=== PATIENT | male | born 1955 | race Caucasian/White ===

== ENCOUNTER 2017-06-21 08:12 | Inpatient (IN) | payer OTHER ==
[~2017-06-21] VITALS: Ht 180.3 cm; Wt 147.6 kg
[~2017-06-21 08:12] MED LIST: ACETAMINOPHEN/H1 TA6 PO; ANTIVERT/2525 MG PO; ASPIR 8181 MG PO; ASPIRIN81 MG PO; CLINDAMYCIN HC300 MG PO; LAC PO; LASIX20 MG PO; LEVOFLOXACIN500 M1 PO; LISINOPRIL20 MG PO; METFORMIN HYD1000 M1 PO; NORCO1 TA2 PO; PRO30 PO; SIMVASTATIN20 M1 PO; SYNTHROID0.1 MG PO; ZES20 PO; ZESTRIL5 MG PO; ZOCOR40 MG PO
[2017-06-21 09:23] LABS: UA SPECIFIC GRAVITY >=1.030 (1.005-1.035); microscopic required? YES; urine erythrocyte 2+ (NEGATIVE)
[2017-06-21 09:26] LABS: CALCIUM 8.7 mg/dL (8.5-10.1); MAGNESIUM 2.3 mg/dL (1.8-2.4)
[2017-06-21 09:28] LABS: AMPHETAMINE QUAL UR NONE DETECTED (NEG <=1000)
[2017-06-21 09:29] LABS: BASOPHIL % 0.3 % (0-2); PLATELET COUNT 177 x10^3mcL (130-400); RED CELL DISTRIBUTION WIDTH 13.8 % (11.5-14.5)
[2017-06-21] MEDS ORDERED: ZESTRIL20 MG PO (10:08)
[2017-06-21] MEDS ORDERED: METFORMIN HYD1000 M2 PO (10:09)
[2017-06-21] MEDS ORDERED: AMARYL2 MG PO (10:09)
[2017-06-21] MEDS ORDERED: HYDROCHLOROTHIA25 MG PO (10:09)
[2017-06-21 11:01] LABS: BILIRUBIN TOTAL 0.48 mg/dL (0.20-1.00); CALCIUM 8.8 mg/dL (8.5-10.1); CARBON DIOXIDE 28.7 mmol/L (21-32); CREATININE SERUM 1.8 mg/dL (0.7-1.3); POTASSIUM SERUM 5.5 mmol/L (3.5-5.1); T4(THYROXINE) 5.9 ug/dL (4.7-13.3); TOTAL PROTEIN, SERUM 7.6 g/dL (6.4-8.2)
[2017-06-21 11:02] LABS: ALBUMIN 3.3 g/dL (3.4-5.0)
[2017-06-21 13:03] LABS: PHOSPHOROUS 3.6 mg/dL (2.5-4.9)
[2017-06-21 13:11] LABS: FREE T4 0.95 ng/dL (0.76-1.46); FREE THYROXINE INDEX 2.5 ug/dL (1.4-4.5)
[2017-06-21 13:17] LABS: T3 TOTAL 0.75 ng/mL
[2017-06-21 14:05] VITALS: BP 197/112
[2017-06-21 14:20] VITALS: Ht 180.3 cm; Wt 147.6 kg
[2017-06-21 15:15] VITALS: BP 179/89
[2017-06-21 16:30] VITALS: BP 134/68
[2017-06-21 18:50] VITALS: BP 147/73
[2017-06-21 19:48] LABS: CALCIUM 8.9 mg/dL (8.5-10.1); CARBON DIOXIDE 29.6 mmol/L (21-32); CREATININE SERUM 2.1 mg/dL (0.7-1.3); POTASSIUM SERUM 4.6 mmol/L (3.5-5.1)
[2017-06-21 21:46] VITALS: BP 196/95
[2017-06-22] VITALS (9 sets, daily range): BP systolic 137–193; BP diastolic 54–94
[2017-06-22 06:33] LABS: BASOPHIL % 0.1 % (0-2); PLATELET COUNT 229 x10^3mcL (130-400); RED CELL DISTRIBUTION WIDTH 14.4 % (11.5-14.5)
[2017-06-22 06:51] LABS: CALCIUM 8.8 mg/dL (8.5-10.1); CARBON DIOXIDE 24.3 mmol/L (21-32); MAGNESIUM 2.3 mg/dL (1.8-2.4); PHOSPHOROUS 4.5 mg/dL (2.5-4.9); POTASSIUM SERUM 4.3 mmol/L (3.5-5.1)
[2017-06-23 06:46] LABS: BASOPHIL % 0.5 % (0-2); PLATELET COUNT 202 x10^3mcL (130-400)
[2017-06-23 06:50] VITALS: BP 158/70
[2017-06-23 06:53] LABS: RED CELL DISTRIBUTION WIDTH 14.9 % (11.5-14.5)
[2017-06-23 07:15] LABS: CALCIUM 8.6 mg/dL (8.5-10.1); CARBON DIOXIDE 27.4 mmol/L (21-32); CREATININE SERUM 1.8 mg/dL (0.7-1.3); MAGNESIUM 2.4 mg/dL (1.8-2.4); PHOSPHOROUS 4.1 mg/dL (2.5-4.9)
[2017-06-23 08:29] VITALS: BP 97/35
[2017-06-23 13:35] VITALS: BP 144/81
[2017-06-23 17:58] VITALS: BP 187/89
[2017-06-23 21:23] VITALS: BP 180/70
[2017-06-23 23:01] VITALS: BP 183/86
[2017-06-24 05:37] VITALS: BP 154/77
[2017-06-24 07:10] LABS: CALCIUM 8.2 mg/dL (8.5-10.1); CARBON DIOXIDE 25.8 mmol/L (21-32); CREATININE SERUM 1.5 mg/dL (0.7-1.3); MAGNESIUM 2.4 mg/dL (1.8-2.4); PHOSPHOROUS 4.2 mg/dL (2.5-4.9); POTASSIUM SERUM 4.5 mmol/L (3.5-5.1)
[2017-06-24 07:14] LABS: BASOPHIL % 0.6 % (0-2); PLATELET COUNT 230 x10^3mcL (130-400); RED CELL DISTRIBUTION WIDTH 14.5 % (11.5-14.5)
[2017-06-24 09:12] VITALS: BP 184/89
[2017-06-24] MEDS ORDERED: NOR5 PO (10:11)
[2017-06-24] MEDS ORDERED: ALD25 PO (10:12)
[2017-06-24] MEDS ORDERED: NOR10T PO (10:34)
[2017-06-24] MEDS ORDERED: ZESTRIL20 MG PO (11:56)
[2017-06-24] MEDS ORDERED: GLIMEPIRIDE1 M1 PO (12:29)
[2017-06-24] MEDS ORDERED: AMARYL2 MG PO (12:58)
[2017-06-24 14:13] VITALS: BP 185/91
[2017-06-24] MEDS ORDERED: HYDRALAZINE HCL25 MG PO (14:24)
[2017-06-24 16:06] VITALS: BP 162/79
== END 2017-06-24 16:20 | disposition home or self-care (01) | DRG 551 ==
LOC: ED 08:12 → DU 11:56
PROVIDERS: Emergency Medicine; Family Medicine
DX: M51.17 Intervertebral disc disorders with radiculopathy, lumbosacral region (principal); N17.0 Acute kidney failure with tubular necrosis; I42.2 Other hypertrophic cardiomyopathy; Z68.42 Body mass index [BMI] 45.0-49.9, adult; I71.2 Thoracic aortic aneurysm, without rupture; I16.0 Hypertensive urgency; R00.1 Bradycardia, unspecified; E11.51 Type 2 diabetes mellitus with diabetic peripheral angiopathy without gangrene; E78.5 Hyperlipidemia, unspecified; E03.9 Hypothyroidism, unspecified; M17.0 Bilateral primary osteoarthritis of knee; E66.01 Morbid (severe) obesity due to excess calories; Z79.82 Long term (current) use of aspirin; Z79.84 Long term (current) use of oral hypoglycemic drugs
CPT/HCPCS: 82962; 83880; 84439; J0360; J1100; J1644; J1885; J1940; J2270; J3490; J7030; J7060; Q0092; Q9967